=== PATIENT | female | born 1980 | race Caucasian/White ===

== ENCOUNTER 2019-11-18 11:50 | Emergency (ER) | payer OTHER, SELFPAY ==
--- NOTE | 2019-11-18 11:58 | ED.WOUNDLAC ---
HPI - Wound/Laceration General Chief Complaint: Wound/Laceration Stated Complaint: R INDEX FINGER LAC Time Seen by Provider: 11/18/19 12:06 Source: patient and RN notes reviewed Mode of arrival: ambulatory Limitations: no limitations History of Present Illness HPI narrative: 39-year-old female presents with concern for laceration to the second digit of her right hand she sustained yesterday at work on a metal can. She reports the cut is superficial, however her employer wanted her to be seen, she is not up-to-date on her tetanus vaccine. She reports she has been keeping the wound clean and covered. She denies any numbness, weakness to the digit Extremity Location: Right: hand (2nd digit) Related Data Home Medications Medication Instructions Recorded Confirmed bupropion HCl [Wellbutrin SR] 200 mg PO BID 11/18/19 11/18/19 Allergies Allergy/AdvReac Type Severity Reaction Status Date / Time No Known Allergies Allergy Verified 11/18/19 12:06 Review of Systems Review of Systems: Narrative: CONSTITUTIONAL: Denies malaise, chills, sweats, or fever. CARDIOVASCULAR: Denies chest pain, palpitations RESPIRATORY: Denies dyspnea. SKIN: Reports superficial laceration to the second digit of right hand MUSCULOSKELETAL: Denies muscle or bone pain NEUROLOGIC: Denies numbness, weakness. All systems reviewed & are unremarkable except as noted in HPI and below PMFSH Social History Social History Smoking status: Never smoker Alcohol intake: current Comments At time of signature, agree with nursing past medical, surgical, social and family history. There is no relevant family history pertinent to the presenting complaint Exam Narrative: Exam Narrative: GENERAL: Well-appearing, well-nourished, and in no acute distress. HEAD: Normocephalic, atraumatic. EYES: PERRLA, conjunctivae clear NECK: Supple. CHEST: Clear to auscultation. No respiratory distress. HEART: Regular rate and rhythm. No murmur heard. Normal peripheral pulses. EXTREMITIES: Second digit of right hand has normal strength and sensation, no edema, normal range of motion. 5/5 strength with digit flexion and extension. Normal sensation with sensitivity to light touch and pain. Distal pulses palpable and equal bilaterally, skin warm, dry, pink. Capillary refill less than 3 seconds. SKIN: Warm, dry, no rash. Superficial laceration to the palmar distal aspect of the second digit of the right hand, not gaping, well approximated, no surrounding erythema, induration, drainage, edema NEURO: Alert and oriented x3. PSYCH: Normal mood and affect Course Course Emergency Course: Patient is aware of diagnosis, understands and agrees to treatment plan. Anticipatory guidance given. Patient agrees to follow-up as directed and is aware of reasons to seek care at the emergency department. Portions of this record may have been created with voice recognition software Vital Signs Vital signs: Vital Signs Temperature 97.7 F 11/18/19 11:59 Pulse Rate 93 11/18/19 11:59 Respiratory Rate 18 11/18/19 11:59 Blood Pressure 133/82 11/18/19 11:59 Pulse Oximetry 99 11/18/19 11:59 Temperature 97.7 F 11/18/19 11:59 Pulse Rate 93 11/18/19 11:59 Respiratory Rate 18 11/18/19 11:59 Blood Pressure 133/82 11/18/19 11:59 Pulse Oximetry 99 11/18/19 11:59 Reviewed. Patient has been instructed to follow up with her primary care provider within the next week regarding her elevated blood pressure today. MDM - Wound/Laceration MDM Narrative Medical decision making narrative: Exam findings show no acute concerns or changes; patient is non-toxic appearing and is in no distress. Patient is appropriate for outpatient treatment and follow-up. Differential Diagnosis Differential diagnosis: Likely laceration, abscess, abrasion and avulsion of skin Critical Care Time Critical Care Time Critical Care Time: No Discharge Plan Discharge Clinical Impression: Superficial
[2019-11-18 11:59] VITALS: BP 133/82; PULSE 93; RESP 18; TEMP 36.5; O2SAT 99
[2019-11-18] MEDS: TETANUS,DIPHTHERIA,AC PERTUSSIS ADULT 0.5 ML (ADACEL) IM (12:17)
== END 2019-11-18 12:38 | disposition home or self-care (01) ==
PROVIDERS: Emergency Provider Nurse Practitioner; PCP Family Medicine
DX: S61.210A Laceration without foreign body of right index finger without damage to nail, initial encounter (principal); W45.8XXA Other foreign body or object entering through skin, initial encounter; Z23 Encounter for immunization; F32.9 Major depressive disorder, single episode, unspecified
CPT/HCPCS: 90471; 90715; 99212; G0463

== ENCOUNTER 2022-08-18 13:00 | Outpatient (NON) | payer OTHER, SELFPAY | END 2022-08-18 13:01 | disposition home or self-care (01) | PROVIDERS: PCP Family Medicine; Visit Provider Nurse Practitioner | DX: R22.9 Localized swelling, mass and lump, unspecified (principal) | CPT/HCPCS: 88304; 88342 ==